=== PATIENT | male | born 1935 | race Caucasian/White ===

== ENCOUNTER 2019-06-23 08:49 | Outpatient (REF) | payer OTHER, SELFPAY ==
[2019-06-23 21:11] LABS: ALT 24 U/L (16-63); AST 20 U/L (15-37); Albumin 3.8 g/dL (3.4-5.0); Alkaline Phosphatase 64 U/L (46-116); Anion Gap 8.6 mmol/L (3-11); BUN 15 mg/dL (7-18); Bilirubin, Total 0.8 mg/dL (0.2-1.0); CO2 28.4 mmol/L (21.0-32.0); CREATININE 0.99 mg/dL (0.70-1.30); Calcium 8.7 mg/dL (8.5-10.1); Calculated LDL 65 mg/dL (<100); Chloride 106 mmol/L (98-107); Cholesterol 139 mg/dL (<200); Glucose 99 mg/dL (74-106); HDL Cholesterol 66 mg/dL (40-60); Potassium 3.9 mmol/L (3.5-5.1); Sodium 143 mmol/L (136-145); Total Protein 7.1 g/dL (6.4-8.2); Triglyceride 41 mg/dL (<150)
== END 2019-06-23 09:09 ==
LOC: NCHCN 08:49
PROVIDERS: PCP Internal Medicine; Visit Provider Internal Medicine
DX: E78.5 Hyperlipidemia, unspecified (principal); I34.0 Nonrheumatic mitral (valve) insufficiency
CPT/HCPCS: 80053; 80061

== ENCOUNTER 2021-11-18 15:16 | Outpatient (REF) | payer MEDICARE, SELFPAY ==
[2021-11-18 15:39] LABS: Abs Immature Grans 0.02 10^3/uL (0.0-0.06); HCT 31.4 % (40.0-50.0); MCH 37.6 pg (27.0-33.0); MCHC 31.8 % (32.0-36.0); MCV 118 fL (80-95); MPV 12.2 fL (8.0-11.0); Platelet Count 75 10^3/uL (130-400); RBC 2.66 10^6/uL (4.36-5.78); RDW 17.3 % (11.8-14.1); RDW-SD 74.8 fL; WBC 2.24 10^3/uL (4.4-10.8)
[2021-11-18 16:43] LABS: Anion Gap 9.1 mmol/L (3-11); BUN 22 mg/dL (7-18); CO2 26.9 mmol/L (21.0-32.0); CREATININE 0.9 mg/dL (0.70-1.30); Calcium 8.3 mg/dL (8.5-10.1); Calculated LDL 52 mg/dL (<100); Chloride 106 mmol/L (98-107); Cholesterol 123 mg/dL (<200); Glucose 108 mg/dL (74-106); HDL Cholesterol 62 mg/dL (40-60); Potassium 3.9 mmol/L (3.5-5.1); Sodium 142 mmol/L (136-145); Triglyceride 45 mg/dL (<150)
[2021-11-18 17:01] LABS: Absolute Lymphocyte Count 1.37 10^3/uL (1.2-3.4); Absolute Monocyte Count 0.31 10^3/uL (0.1-0.8); Absolute Neutrophil Count 0.54 10^3/uL (1.2-6.7); Bands % 1; Diff Comment Manual Differential; Metamyelocytes % 1
[2021-11-18 17:02] LABS: Macrocytosis 3+; Polychromasia Present
== END 2021-11-18 15:17 | disposition home or self-care (01) ==
LOC: NCHCN 15:16
PROVIDERS: PCP Internal Medicine; Visit Provider Internal Medicine
DX: E78.5 Hyperlipidemia, unspecified (principal); I34.0 Nonrheumatic mitral (valve) insufficiency
CPT/HCPCS: 80048; 80061; 85025

== ENCOUNTER 2021-11-23 18:05 | Outpatient (REF) | payer MEDICARE, SELFPAY ==
[2021-11-23 21:44] LABS: Abs Immature Grans 0.03 10^3/uL (0.0-0.06); Absolute Lymphocyte Count 1.62 10^3/uL (1.2-3.4); Absolute Monocyte Count 0.65 10^3/uL (0.1-0.8); Absolute Neutrophil Count 1.11 10^3/uL (1.2-6.7); HCT 30.2 % (40.0-50.0); Immature Grans % 0.9; Lymphocytes % 47.5; MCH 37.9 pg (27.0-33.0); MCHC 33.1 % (32.0-36.0); MCV 114 fL (80-95); MPV 12.9 fL (8.0-11.0); Monocytes % 19.1; Neutrophils % 32.5; RBC 2.64 10^6/uL (4.36-5.78); RDW 17.1 % (11.8-14.1); RDW-SD 72.7 fL; WBC 3.41 10^3/uL (4.4-10.8)
[2021-11-23 21:49] LABS: Platelet Count 77 10^3/uL (130-400)
[2021-11-23 22:43] LABS: Vitamin B12 598 pg/mL (193-986)
== END 2021-11-23 18:06 | disposition home or self-care (01) ==
LOC: NCHCN 18:05
PROVIDERS: PCP Internal Medicine; Visit Provider Nurse Practitioner Family
DX: D61.818 Other pancytopenia (principal)
CPT/HCPCS: 82607; 82746; 85025

== ENCOUNTER 2021-11-28 18:09 | Outpatient (REF) | payer MEDICARE, SELFPAY ==
[2021-11-28 15:07] LABS: Ferritin 401 ng/mL (26-388)
[2021-11-29 09:58] LABS: Hepatitis C Ab w Rflx HCV PCR Negative (Negative)
[2021-11-29 10:08] LABS: HIV-1/2 Ag & Ab Screen Negative (Negative)
[2021-11-30 11:03] LABS: CMV IgG Antibody Positive (See Note)
[2021-11-30 11:08] LABS: EBNA IgG Positive (Negative); EBV Interpretation (See Note); VCA IgG Positive (Negative); VCA IgM Negative (Negative)
[2021-11-30 13:41] LABS: HBV DNA Detect/Quant, PCR Undetected IU/mL (Undetected)
[2021-11-30 14:38] LABS: Parvovirus B19 Ab, IgG Positive (Negative); Parvovirus B19 Ab, IgM Negative (Negative)
== END 2021-11-28 18:10 | disposition home or self-care (01) ==
LOC: NCHCN 18:09
PROVIDERS: PCP Internal Medicine; Visit Provider Nurse Practitioner Family
DX: D61.818 Other pancytopenia (principal)
CPT/HCPCS: 86803; 87389; 87517; 82728; 86644; 86664; 86665; 86747

== ENCOUNTER 2022-06-19 16:31 | Outpatient (REF) | payer MEDICARE, SELFPAY ==
--- NOTE | 2022-06-19 15:30 | SKI_PTH ---
PATIENT: Jhonatan Zimmerman LOC: [facility] U#:[id number] AGE/SX: 87/M ROOM: RE06/19/[address]: Mikayla Paris : 1935 BED: DIS: 06/19/2022 SPEC #: [id number] RECD: 06/20/22 12:39 STATUS: JEANETTE REArnel #: [id number] GELY: 06/19/22 15:[address]: Mikayla Livingston DEPT: Surgical Specimen RECD BY: Bre Gaspar ENTERED: 06/20/22 12:39 SP TYPE: CHIP CONTRERAS DR: Randell Ashton Tissues: 1 - SKIN BIOPSY(SHAVE/PUNCH) Procedures: SKIN LEVEL 4 Comments: [id number]
== END 2022-06-19 16:32 | disposition home or self-care (01) ==
LOC: LBN 16:31
PROVIDERS: PCP Internal Medicine; Visit Provider Nurse Practitioner Family
DX: C44.622 Squamous cell carcinoma of skin of right upper limb, including shoulder (principal)
CPT/HCPCS: 88305

== ENCOUNTER 2022-08-28 11:09 | Outpatient (REF) | payer MEDICARE, SELFPAY ==
--- NOTE | 2022-08-28 09:40 | SKI_PTH ---
PATIENT: Jhonatan Zimmerman LOC: [facility]#:[id number] AGE/SX: 87/M ROOM: RE08/28/[address]: Mikayla Paris : 1935 BED: DIS: 08/28/2022 SPEC #: [id number] RECD: 08/28/22 18:08 STATUS: JEANETTE REArnel #: [id number] GELY: 08/28/22 09:[address]: Mikayla Livingston DEPT: Surgical Specimen RECD BY: Bre Gaspar ENTERED: 08/28/22 18:09 SP TYPE: CHIP CONTRERAS DR: Randell Ashton Tissues: 1 - SKIN BIOPSY(SHAVE/PUNCH) Procedures: SKIN LEVEL 4 Comments: [id number]
== END 2022-08-28 11:10 | disposition home or self-care (01) ==
LOC: NCHCN 11:09
PROVIDERS: PCP Internal Medicine; Visit Provider Nurse Practitioner Family
DX: C44.622 Squamous cell carcinoma of skin of right upper limb, including shoulder (principal); L98.8 Other specified disorders of the skin and subcutaneous tissue
CPT/HCPCS: 88305